=== PATIENT | male | born 1960 | race Caucasian/White ===

== ENCOUNTER 2022-05-03 11:27 | Observation (INO) | payer OTHER, SELFPAY ==
[2022-05-03] VITALS (16 sets, daily range): BP systolic 127–183; BP diastolic 71–87; PULSE 74–102; RESP 18–20; TEMP 36.5–37.9; O2SAT 94–98; BMI 28.9
--- NOTE | 2022-05-03 12:21 | ED.GENADULT ---
HPI - General Adult General Time Seen by Provider: 12:22 Date Seen: 05/03/22 Chief complaint: Skin/Abscess/Foreign Body Stated complaint: LT side of face swollen Time Seen by Provider: 05/03/22 12:00 Source: patient Mode of arrival: ambulatory Limitations: no limitations History of Present Illness HPI narrative: Patient is a 62 white male who is nondiabetic who presents with left-sided facial swelling starting yesterday. He has not had any history of significant infections. He reports that his face yesterday started with a little bit a redness under his left eye now spread across his nasal bridge to the other side under his eye on the right and he has got a entire maxillary sinus area redness as well. He has had sinus type symptoms over the last week or so. He also sprained his left ankle recently has some bruising in that area. He has had dry skin about his face but no obvious injury. He does have 1 area that is scratched on his left side of the nose. But does not appear bleeding or infected. He has noticed the area is very warm as well as red. He does not have any significant rigors he is not dizzy Related Data Home Medications Medication Instructions Recorded Confirmed No Known Home Medications 04/29/22 04/29/22 Allergies Allergy/AdvReac Type Severity Reaction Status Date / Time No Known Drug Allergies Allergy Verified 04/29/22 11:31 Review of Systems Status of ROS: Reports: 6 or more systems reviewed and unremarkable except as noted in History and below [facility] Medical History Hyperlipidemia Rupture of plantaris tendon Surgical History History of hernia repair Social History Smoking Status: Never smoker Do you use any of these nicotine containing products: None Second hand tobacco smoke exposure: No How often do you have a drink containing alcohol: 2-3 times a week How many standard drinks containing alcohol do you have on a typical day: 1 or 2 How often do you have six or more drinks on one occasion: Never AUDIT-C Alcohol total score: 3 Non-prescribed substance use: denies use Exam Narrative: Exam Narrative: Objective in general patient is no apparent distress his temp is 99? other vital signs unremarkable He has got significant redness under his left eye across his nasal bridge to under his right eye the entire left cheek is reddened and puffy, he has got a small scratch area on the left side of the nose. No other obvious rashes or lesions. Does not seem to involve his eyes but is around the eyes socket in the soft tissue in the inferior rim of the eye on the left and a little bit on the right Const: Vital Signs, click to edit/add: Vital Signs - 24 hr 05/03/22 11:59 05/03/22 13:03 05/03/22 13:04 Temperature 99.0 F Pulse Rate 99 99 Pulse Rate [Pulse Oximeter] 102 H Respiratory Rate 20 Blood Pressure 157/86 H Blood Pressure [Ri ght Upper Arm] 143/81 H Pulse Oximetry 95 95 96 Oxygen Delivery Me thod Room Air 05/03/22 13:15 05/03/22 13:30 05/03/22 13:32 Temperature Pulse Rate 92 92 90 Pulse Rate [Pulse Oximeter] Respiratory Rate Blood Pressure 149/84 H Blood Pressure [Ri ght Upper Arm] Pulse Oximetry 96 96 96 Oxygen Delivery Me thod 05/03/22 13:45 05/03/22 14:00 05/03/22 14:02 Temperature Pulse Rate 89 90 94 Pulse Rate [Pulse Oximeter] Respiratory Rate Blood Pressure 146/84 H Blood Pressure [Ri ght Upper Arm] Pulse Oximetry 98 97 97 Oxygen Delivery Me thod 05/03/22 14:15 05/03/22 14:30 Temperature Pulse Rate 88 91 Pulse Rate [Pulse Oximeter] Respiratory Rate Blood Pressure Blood Pressure [Ri ght Upper Arm] Pulse Oximetry 97 97 Oxygen Delivery Me thod Course Vital Signs Vital signs: Initial Vital Signs Temperature 99.0 F 05/03/22 11:59 Temperature Source Temporal Artery Scan 05/03/22 11:59 Pulse Rate 102 H 05/03/22 11:59 Respiratory Rate 20 05/03/22 11:59 Blood Pressure 143/81 H 05/03/22 11:59 Blood Pressure Mean 101 05/03/22 11:59 Blood Pressure Position Sitting 05/03/22 11:59 Pulse Oximetry 95 05/03/22 11:59 Oxygen Delivery Method 05/03/22 11:59 Vital Signs Temperature 99.0 F 05/03/22 11:59 Pulse Rate 102 H 05/03/22 11:59 Respiratory Rate 20 05/03/22 11:59 Blood Pressure 143/81 H 05/03/22 11:59 Pulse Oximetry 95 05/03/22 11:59 Oxygen Delivery Method 05/03/22 11:59 Temperature 99.0 F 05/03/22 11:59 Pulse Rate 91 05/03/22 14:30 Respiratory Rate 20 05/03/22 11:59 Blood Pressure 146/84 H 05/03/22 14:02 Pulse Oximetry 97 05/03/22 14:30 Oxygen Delivery Method 05/03/22 11:59 Medical Decision Making MDM Narrative Medical decision making narrative: Patient is a 62-year-old white male with on unremarkable past medical history, who presents with facial cellulitis that seems to be pretty significantly spreading over the last 24 hours. At this point I think he needs hospitalization IV vancomycin, blood culture, IV fluid, pain control as needed. Will discuss with hospitalist ENT consult as needed but I think at this point simply pain control, antibiotics for MRSA and staph and strep and observation. He has were comfortable plan will discuss with the hospitalist team. Lab Data Labs: Lab Results 05/03/22 05/03/22 05/03/22 Range/Units 12:46 12:46 13:15 WBC 16.52 H (4.50-11.00) K/uL RBC 5.32 (4.30-5.90) m/uL Hgb 15.1 (13.5-17.5) gm/dL Hct 45.3 (37.0-53.0) % MCV 85 (80-100) fL MCH 28 (26-34) pg MCHC 33 (32-36) gm/dL RDW Coeff of Valdemar 14.3 (11.5-15.5) % Plt Count 358 (140-440) K/uL Neut % (Auto) 88.0 H (42.0-72.0) % Lymph % (Auto) 6.5 L (20-44) % [place] % (Auto) 5.2 (0.0-11.0) % Eos % (Auto) 0.1 (0.0-7.0) % Baso % (Auto) 0.1 (0.0-3.0) % Neut # (Auto) 14.50 H (1.7-7.0) K/uL Lymph # (Auto) 1.10 (0.90-2.90) K/uL [place] # (Auto) 0.90 (0.00-0.90) K/UL Eos # (Auto) 0.00 (0.00-0.50) K/uL Baso # (Auto) 0.00 (0.00-0.30) K/uL Sodium 138 (135-149) mmol/L Potassium 3.9 (3.6-5.1) mmol/L Chloride 105 (96-114) mmol/L Carbon Dioxide 25 (20-32) mmol/L BUN 19 (7-30) mg/dL Creatinine 0.9 (0.5-1.5) mg/dL Estimated Creat Clear 73.15 Estimated GFR 96 ml/min Glucose 121 H (60-115) mg/dL Calcium 9.2 (8.4-10.6) mg/dL C-Reactive Protein 4.0 H (0.5-1.0) mg/dL SARS-CoV-2 (PCR) Negative SARS-CoV-2 (Negative) Discharge Plan Discharge Clinical Impression: Cellulitis of face Patient Disposition: Admitted As Inpatient
[2022-05-03] MEDS: 0.9 % SODIUM CHLORIDE 1000 ml 1,000 ML 6000 ML IV (12:49)
[2022-05-03] MEDS: MORPHINE 4 MG/ML INJ IVP (12:51)
[2022-05-03 13:35] LABS: Basophils Percent Auto 0.1 % (0.0-3.0); Eosinophils Percent Auto 0.1 % (0.0-7.0); Hematocrit 45.3 % (37.0-53.0); Hemoglobin* 15.1 gm/dL (13.5-17.5); Immature Granulocytes Pct Auto 0.1 %; Lymphocytes Percent Auto 6.5 % (20-44); Mean Corpuscular HGB Conc 33 gm/dL (32-36); Mean Corpuscular Hemoglobin 28 pg (26-34); Mean Corpuscular Volume 85 fL (80-100); Monocytes Percent Auto 5.2 % (0.0-11.0); Platelet Count* 358 K/uL (140-440); RDW Coefficient of Variation % 14.3 % (11.5-15.5); Red Blood Count 5.32 m/uL (4.30-5.90); White Blood Count* 16.52 K/uL (4.50-11.00)
[2022-05-03 13:36] LABS: Slide Review Reflex No
[2022-05-03 13:47] LABS: Chloride* 105 mmol/L (96-114)
[2022-05-03 13:48] LABS: Potassium* 3.9 mmol/L (3.6-5.1); Sodium* 138 mmol/L (135-149)
[2022-05-03 13:50] LABS: Creatinine* 0.9 mg/dL (0.5-1.5); Est. Creatinine Clearance* 73.15; Estimated Glomerular Filt Rate 96 ml/min
[2022-05-03 13:51] LABS: Blood Urea Nitrogen* 19 mg/dL (7-30); Calcium* 9.2 mg/dL (8.4-10.6); Carbon Dioxide* 25 mmol/L (20-32); Glucose* 121 mg/dL (60-115)
[2022-05-03 14:04] LABS: SARS PCR* Negative SARS-CoV-2 (Negative)
--- NOTE | 2022-05-03 14:30 | ED.NURSE ---
report to marilu plata. will go to [id number] via w/c.
--- NOTE | 2022-05-03 15:54 | PM.IMHP1 ---
Hospitalist- H&P: HPI History of Present Illness Date Seen: 05/03/22 Chief complaint: LT side of face swollen Narrative: Elmer Woodard is a 62 year old male who presented to the emergency room today with an erythematous rash on his face that he 1st noticed this morning. Elmer has had intermittent sinus infection symptoms for the past 7-10 days. He has had intermittent facial pain that is responded well to aspirin. This morning, he woke up and saw that his face was erythematous and presented to the ER. He has had no known fevers. No sick contacts, recent travel, or dental work. No self or family history of autoimmune disorders. ER course and findings: - white count 16, CRP 4 - given vancomycin Admitted to the hospital given acute illness and facial cellulitis. Patient is generally healthy and takes no medications on a regular basis. He does not have a local PCP. Review of Systems Status of ROS: Reports: 10 or more systems reviewed and unremarkable except as noted in History and below Narrative: + sinus congestion. Recent injury to left lower extremity (plantar tendon rupture), bruising noted No CP, no dyspnea. No new GI or symptoms. [facility] Medical History (Updated 05/03/22 @ 16:12 by Renetta Birch MD) Hyperlipidemia Rupture of plantaris tendon Surgical History History of hernia repair Social History (Updated 05/03/22 @ 15:57 by Renetta Birch MD) Narrative: Lives with (medical decision maker, if needed) in [place]. Works for [employer]. Full Code. Smoking Status: Never smoker Do you use any of these nicotine containing products: None Second hand tobacco smoke exposure: No How often do you have a drink containing alcohol: 2-3 times a week How many standard drinks containing alcohol do you have on a typical day: 1 or 2 How often do you have six or more drinks on one occasion: Never AUDIT-C Alcohol total score: 3 Non-prescribed substance use: denies use Meds Home Medications and Allergies Home Medications Medication Instructions Recorded Confirmed Type No Known Home Medications 04/29/22 04/29/22 History Home Medication Comments: No daily medications. Allergies Allergy/AdvReac Type Severity Reaction Status Date / Time No Known Drug Allergies Allergy Verified 04/29/22 11:31 Exam Narrative: Exam Narrative: GEN: Alert and oriented, speaking in full sentences HEENT: Normal external ears, EOMIs bilaterally, no scleral icterus, oropharynx moist and clear, posteriorly patent CV: RRR, No concerning murmurs, rubs, or gallops R: LCTA bilaterally without concerning wheezing, air movement adequate Ext: wwp, no concerning edema. + bruising over LLE medial malleolus from recent injury Skin: erythematous rash over nose and bilateral cheeks, malar distribution Neuro: No focal deficits Psych: Appropriate Const: Vital Signs, click to edit/add: Vital Signs - 24 hr 05/03/22 11:59 05/03/22 13:03 05/03/22 13:04 Temperature 99.0 F Pulse Rate 99 99 Pulse Rate [Pulse Oximeter] 102 H Pulse Rate [Right Radial] Respiratory Rate 20 Blood Pressure 157/86 H Blood Pressure [Ri ght Arm] Blood Pressure [Ri ght Upper Arm] 143/81 H Pulse Oximetry 95 95 96 Oxygen Delivery Me thod Room Air 05/03/22 13:15 05/03/22 13:30 05/03/22 13:32 Temperature Pulse Rate 92 92 90 Pulse Rate [Pulse Oximeter] Pulse Rate [Right Radial] Respiratory Rate Blood Pressure 149/84 H Blood Pressure [Ri ght Arm] Blood Pressure [Ri ght Upper Arm] Pulse Oximetry 96 96 96 Oxygen Delivery Me thod 05/03/22 13:45 05/03/22 14:00 05/03/22 14:02 Temperature Pulse Rate 89 90 94 Pulse Rate [Pulse Oximeter] Pulse Rate [Right Radial] Respiratory Rate Blood Pressure 146/84 H Blood Pressure [Ri ght Arm] Blood Pressure [Ri ght Upper Arm] Pulse Oximetry 98 97 97 Oxygen Delivery Me thod 05/03/22 14:15 05/03/22 14:30 05/03/22 15:03 Temperature 100.3 F H Pulse Rate 88 91 Pulse Rate [Pulse Oximeter] Pulse Rate [Right Radial] 95 Respiratory Rate 18 Blood Pressure Blood Pressure [Ri ght Arm] 183/87 H Blood Pressure [Ri ght Upper Arm] Pulse Oximetry 97 97 98 Oxygen Delivery Me thod Room Air Hospitalist - H&P: Result Labs Labs: Short CBC 05/03/22 Range/Units 12:46 WBC 16.52 H (4.50-11.00) K/uL Hgb 15.1 (13.5-17.5) gm/dL Hct 45.3 (37.0-53.0) % Plt Count 358 (140-440) K/uL [facility] 05/03/22 12:46 Sodium 138 Potassium 3.9 Chloride 105 Carbon Dioxide 25 BUN 19 Creatinine 0.9 Glucose 121 H Calcium 9.2 Assessment and Plan Assessment and plan (1) Cellulitis of face: Problem comment: - vancomycin initiated in the emergency room - distribution of rash raises possibility of SLE; given patient's acute sinusitis, leukocytosis, and elevated temp, acute infectious process more likely - consider outpatient workup for autoimmune conditions after hospital stay - add Unasyn to vancomycin, follow closely with low threshold for imaging, follow WBC and inflammatory markers Status: Acute Plan - per above - SCDs and ambulation for ppx - Full Code - updated at bedside, questions answered
--- NOTE | 2022-05-03 16:15 | CRLHL7_ITS ---
For Patients: As a result of the Century Cures Act, medical imaging exams and procedure reports are released immediately into your electronic medical record. You may view this report before your referring provider. If you have questions, please contact your health care provider. INDICATION: Facial cellulitis. Evaluate for abscess. COMPARISON: None available. TECHNIQUE: CT examination of the facial bones is performed during the uneventful intravenous administration of 94 cc of Isovue 370 using spiral technique. One mm thick axial, coronal and sagittal sections were obtained from the data. Please note that all CT scans at this facility use dose modulation, iterative reconstruction, and/or weight-based dosing when appropriate to reduce radiation dose to as low as reasonably achievable. FINDINGS: There is mild soft tissue swelling of the left maxillary region, along with mild swelling of the left lower eyelid, consistent with cellulitis. There is no sign of any fluid collection to suggest an abscess. There is no sign osseous destruction. There is no sign of any dental abnormality in this region to suggest a dental origin, with no sign of periapical abscess formation. There is mild right greater than left superior jugular chain lymphadenopathy, the lymph node on the right having a short axis diameter of 1.2 centimeters, the lymph node on the left having a short axis diameter of 1.0 centimeters. These are probably reactive. There is mild prominence of lymph nodes in the submandibular regions bilaterally without lymphadenopathy. Note is made of multiple small enhancing nodules with reniform shape in the superficial lobes of both parotid glands, more numerous on the left than the right. These are probably intra parotid lymph nodes. 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 There is no sign of facial fracture on today`s study. The orbits, zygomatic arches, nasal bones, maxillae, and mandible are normal in appearance. There is a small mucous retention cyst in the inferior left maxillary sinus. The paranasal sinuses are otherwise clear. Paranasal sinuses are clear. The mastoids are clear. The intraorbital soft tissue structures are unremarkable, with no sign of any extension of the left maxillary slightly this into the or intraorbital space. The airway structures are normal in appearance. IMPRESSION: Cellulitis of the left maxillary region extending into the left lower eyelid with no sign of abscess. No sign of intraorbital extension of the inflammatory process. No sign of any dental abscess to suggest a source for the infection. Please note that all CT scans at this facility use dose modulation, iterative reconstruction, and/or weight-based dosing when appropriate to reduce radiation dose to as low as reasonably achievable. Dictated by Peter Pacheco MD @ 05/03/2022 5:46:26 PM (Electronically Signed)
[2022-05-03] MEDS: AMPICILLIN/SULBACTAM 3 GM in 0.9 % SODIUM CHLORIDE Mini-bag 100 ML IVPB ×2 (16:24→21:43)
[2022-05-03] MEDS: IBUPROFEN 600 MG TABLET PO (16:30)
--- NOTE | 2022-05-03 19:17 | PC.NURSE ---
Patient presents to the unit with redness and swelling to primarily left side of face but extending to right side of face as well. Patient independent with cares. Patient with low grade temp of 100.1 upon arrival to unit. After ABX and ibuprofen admin, patient recheck of temp was 99.0. Patient with no c/o pain just pressure to face from the swelling. Patient name is Dayan and was at bedside during initial assessment.
[2022-05-03] MEDS: SODIUM CHLORIDE 0.9 % (FLUSH) 10 ML SYRINGE 5 ML IVF (21:46)
--- NOTE | 2022-05-03 22:43 | PC.NURSE ---
Shift [id number]- Patient denies pain tonight. Face remains pink and swollen. Antibiotic infused without difficulty. Up ad leroy.
[2022-05-04 03:00] VITALS: BP 113/73; PULSE 62; RESP 18; TEMP 36.2; O2SAT 96
[2022-05-04] MEDS: AMPICILLIN/SULBACTAM 3 GM in 0.9 % SODIUM CHLORIDE Mini-bag 100 ML IVPB ×2 (03:39→09:39)
[2022-05-04 06:38] LABS: Basophils Absolute Auto 0.01 K/uL (0.00-0.30); Basophils Percent Auto 0.1 % (0.0-3.0); Eosinophils Absolute Auto 0.15 K/uL (0.00-0.50); Eosinophils Percent Auto 1.6 % (0.0-7.0); Hematocrit 38.2 % (37.0-53.0); Hemoglobin* 12.8 gm/dL (13.5-17.5); Immature Granulocytes Abs Auto 0.09 K/uL (0.00-0.30); Mean Corpuscular HGB Conc 34 gm/dL (32-36); Mean Corpuscular Hemoglobin 29 pg (26-34); Mean Corpuscular Volume 85 fL (80-100); Monocytes Percent Auto 10.9 % (0.0-11.0); Neutrophils Percent Auto 74.4 % (42.0-72.0); Platelet Count* 297 K/uL (140-440); RDW Coefficient of Variation % 14.5 % (11.5-15.5); Red Blood Count 4.49 m/uL (4.30-5.90); White Blood Count* 9.38 K/uL (4.50-11.00)
[2022-05-04 06:57] LABS: Slide Review Reflex No
[2022-05-04 07:08] LABS: Chloride* 106 mmol/L (96-114); Potassium* 3.9 mmol/L (3.6-5.1); Sodium* 137 mmol/L (135-149)
--- NOTE | 2022-05-04 07:08 | PC.NURSE ---
Shift note: Pt is doing well, no fever and pain observed. Ambulated independently in the room. Had adequate sleep tonight.
[2022-05-04 07:11] LABS: Creatinine* 0.8 mg/dL (0.5-1.5); Est. Creatinine Clearance* 73.15; Estimated Glomerular Filt Rate 99 ml/min
[2022-05-04 07:12] LABS: Blood Urea Nitrogen* 14 mg/dL (7-30); Calcium* 8.7 mg/dL (8.4-10.6); Carbon Dioxide* 26 mmol/L (20-32); Glucose* 97 mg/dL (60-115)
[2022-05-04 07:15] LABS: C Reactive Protein* 6.8 mg/dL (0.5-1.0)
[2022-05-04 07:32] VITALS: BP 143/85; PULSE 78; RESP 16; TEMP 36.6; O2SAT 95
[2022-05-04] MEDS: SODIUM CHLORIDE 0.9 % (FLUSH) 10 ML SYRINGE 5 ML IVF (09:39)
--- NOTE | 2022-05-04 09:52 | P.DS_ITS ---
DS: Providers Provider Date Seen: 05/04/22 Date of admission: 05/03/22 14:46 Primary care physician: Carl Echevarria MD Admitting Clinician: Renetta Birch MD Attending Physician on discharge: Renetta Birch MD Date of Discharge: 05/04/22 DS: Diagnosis Discharge Diagnosis (1) Cellulitis of face: Status: Acute Problem details: - vancomycin initiated in the emergency room, Unasyn added during hospital stay - distribution of rash raises possibility of SLE; given patient's acute sinusitis, leukocytosis, and elevated temp, acute infectious process more likely DS: Summary Hospital Course Hospital Course: 62-year-old male with no significant past medical history, admitted to the hospital for facial cellulitis in the setting of recent sinus infection. Initiated vancomycin in the emergency room, Unasyn added during hospitalization. Imaging exhibited no evidence of abscess or dental involvement; patient significantly improved on hospital day 1 and requested discharge home. He will complete IV Vancomycin and Unasyn this morning, transition to oral Augmentin on discharge with close outpatient f/u and strict return precautions. Patient verbalized understanding of plan. Status at Discharge Functional status at discharge: independent ambulation Overall status at discharge: patient is progressing back to baseline Time Spent with Patient Time attestation: Total time spent providing and/or coordinating discharge services: Time spent: Less than 30 minutes Exam Narrative: Exam Narrative: GEN: Alert and oriented, sitting comfortably in bed and answering questions appropriately, nontoxic in appearance HEENT: EOMIs bilaterally and eyes open 100%, + turbinate hypertrophy bilaterally, no trismus, no concerning oral lesions CV: RRR, No concerning murmurs, rubs, or gallops R: LCTA bilaterally without concerning wheezing, rales, or rhonchi Skin: Confluent erythema over nasal bridge and L cheek exhibits significant improvement from admission, no significant induration, no fluctuance or crepitus Neuro: No focal deficits Psych: Appropriate Const: Vital Signs, click to edit/add: Vital Signs - 24 hr 05/03/22 11:59 05/03/22 13:03 05/03/22 13:04 Temperature 99.0 F Pulse Rate 99 99 Pulse Rate [Pulse Oximeter] 102 H Pulse Rate [Right Radial] Respiratory Rate 20 Blood Pressure 157/86 H Blood Pressure [Ri ght Arm] Blood Pressure [Ri ght Upper Arm] 143/81 H Pulse Oximetry 95 95 96 Oxygen Delivery Me thod Room Air 05/03/22 13:15 05/03/22 13:30 05/03/22 13:32 Temperature Pulse Rate 92 92 90 Pulse Rate [Pulse Oximeter] Pulse Rate [Right Radial] Respiratory Rate Blood Pressure 149/84 H Blood Pressure [Ri ght Arm] Blood Pressure [Ri ght Upper Arm] Pulse Oximetry 96 96 96 Oxygen Delivery Me thod 05/03/22 13:45 05/03/22 14:00 05/03/22 14:02 Temperature Pulse Rate 89 90 94 Pulse Rate [Pulse Oximeter] Pulse Rate [Right Radial] Respiratory Rate Blood Pressure 146/84 H Blood Pressure [Ri ght Arm] Blood Pressure [Ri ght Upper Arm] Pulse Oximetry 98 97 97 Oxygen Delivery Me thod 05/03/22 14:15 05/03/22 14:30 05/03/22 15:03 Temperature 100.3 F H Pulse Rate 88 91 Pulse Rate [Pulse Oximeter] Pulse Rate [Right Radial] 95 Respiratory Rate 18 Blood Pressure Blood Pressure [Ri ght Arm] 183/87 H Blood Pressure [Ri ght Upper Arm] Pulse Oximetry 97 97 98 Oxygen Delivery Me thod Room Air 05/03/22 15:03 05/03/22 15:45 05/03/22 15:45 Temperature 100.0 F H Pulse Rate Pulse Rate [Pulse Oximeter] Pulse Rate [Right Radial] 74 Respiratory Rate 18 Blood Pressure Blood Pressure [Ri ght Arm] 174/78 H Blood Pressure [Ri ght Upper Arm] Pulse Oximetry 98 Oxygen Delivery Me thod Room Air Room Air Room Air 05/03/22 19:01 05/03/22 19:00 05/03/22 23:00 Temperature 99.1 F 98.3 F Pulse Rate Pulse Rate [Pulse Oximeter] Pulse Rate [Right Radial] 99 81 99 Respiratory Rate 18 18 18 Blood Pressure Blood Pressure [Ri ght Arm] 130/71 127/73 Blood Pressure [Ri ght Upper Arm] Pulse Oximetry 94 96 Oxygen Delivery Me thod Room Air 05/03/22 23:00 05/03/22 23:00 05/04/22 03:00 Temperature 97.7 F 97.2 F L Pulse Rate Pulse Rate [Pulse Oximeter] Pulse Rate [Right Radial] 76 62 Respiratory Rate 18 18 18 Blood Pressure Blood Pressure [Ri ght Arm] 137/82 113/73 Blood Pressure [Ri ght Upper Arm] Pulse Oximetry 96 96 96 Oxygen Delivery Me thod Room Air Room Air Room Air 05/04/22 07:32 Temperature 97.8 F Pulse Rate Pulse Rate [Pulse Oximeter] Pulse Rate [Right Radial] 78 Respiratory Rate 16 Blood Pressure Blood Pressure [Ri ght Arm] 143/85 H Blood Pressure [Ri ght Upper Arm] Pulse Oximetry 95 Oxygen Delivery Me thod Room Air DS: Data Data Completed and Pending Completed studies during hospitalization: CT FACIAL BONES INDICATION: Facial cellulitis. Evaluate for abscess. COMPARISON: None available. TECHNIQUE: CT examination of the facial bones is performed during the uneventful intravenous administration of 94 cc of Isovue 370 using spiral technique. One mm thick axial, coronal and sagittal sections were obtained from the data. Please note that all CT scans at this facility use dose modulation, iterative reconstruction, and/or weight-based dosing when appropriate to reduce radiation dose to as low as reasonably achievable. FINDINGS: There is mild soft tissue swelling of the left maxillary region, along with mild swelling of the left lower eyelid, consistent with cellulitis. There is no sign of any fluid collection to suggest an abscess. There is no sign osseous destruction. There is no sign of any dental abnormality in this region to suggest a dental origin, with no sign of periapical abscess formation. There is mild right greater than left superior jugular chain lymphadenopathy, the lymph node on the right having a short axis diameter of 1.2 centimeters, the lymph node on the left having a short axis diameter of 1.0 centimeters. These are probably reactive. There is mild prominence of lymph nodes in the submandibular regions bilaterally without lymphadenopathy. Note is made of multiple small enhancing nodules with reniform shape in the superficial lobes of both parotid glands, more numerous on the left than the right. These are probably intra parotid lymph nodes. 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 There is no sign of facial fracture on today`s study. The orbits, zygomatic arches, nasal bones, maxillae, and mandible are normal in appearance. There is a small mucous retention cyst in the inferior left maxillary sinus. The paranasal sinuses are otherwise clear. Paranasal sinuses are clear. The mastoids are clear. The intraorbital soft tissue structures are unremarkable, with no sign of any extension of the left maxillary slightly this into the or intraorbital space. The airway structures are normal in appearance. ? IMPRESSION: Cellulitis of the left maxillary region extending into the left lower eyelid with no sign of abscess. No sign of intraorbital extension of the inflammatory process. No sign of any dental abscess to suggest a source for the infection. Please note that all CT scans at this facility use dose modulation, iterative reconstruction, and/or weight-based dosing when appropriate to reduce radiation dose to as low as reasonably achievable. Dictated by Peter Pacheco MD @ 05/03/2022 5:46:26 PM Labs on day of discharge: Labs from last 24 hours 05/04/22 05/04/22 05/03/22 05:53 05:53 13:15 WBC 9.38 RBC 4.49 Hgb 12.8 L Hct 38.2 MCV 85 MCH 29 MCHC 34 RDW Coeff of Valdemar 14.5 Plt Count 297 Neut % (Auto) 74.4 H Lymph % (Auto) 12.0 L Andrews % (Auto) 10.9 Eos % (Auto) 1.6 Baso % (Auto) 0.1 Neut # (Auto) 7.00 Lymph # (Auto) 1.10 Andrews # (Auto) 1.00 H Eos # (Auto) 0.15 Baso # (Auto) 0.01 Sodium 137 Potassium 3.9 Chloride 106 Carbon Dioxide 26 BUN 14 Creatinine 0.8 Estimated Creat Clear 73.15 Estimated GFR 99 Glucose 97 Calcium 8.7 C-Reactive Protein 6.8 H SARS-CoV-2 (PCR) Negative SARS-CoV-2 05/03/22 05/03/22 12:46 12:46 WBC 16.52 H RBC 5.32 Hgb 15.1 Hct 45.3 MCV 85 MCH 28 MCHC 33 RDW Coeff of Valdemar 14.3 Plt Count 358 Neut % (Auto) 88.0 H Lymph % (Auto) 6.5 L Andrews % (Auto) 5.2 Eos % (Auto) 0.1 Baso % (Auto) 0.1 Neut # (Auto) 14.50 H Lymph # (Auto) 1.10 Andrews # (Auto) 0.90 Eos # (Auto) 0.00 Baso # (Auto) 0.00 Sodium 138 Potassium 3.9 Chloride 105 Carbon Dioxide 25 BUN 19 Creatinine 0.9 Estimated Creat Clear 73.15 Estimated GFR 96 Glucose 121 H Calcium 9.2 C-Reactive Protein 4.0 H SARS-CoV-2 (PCR) Discharge Plan Discharge Disposition: Home, Self-Care Date of Admission: 05/03/22 14:46 Attending Provider on Discharge: Renetta Birch Primary Care Provider: Calr Echevarria Condition: Improved Anticipated Discharge Date/Time: 05/04/22 11:00 Discharge Medications: New amoxicillin-pot clavulanate 875-125 mg tablet 1 tab PO Q12H 8 Days Qty: 16 0RF fluticasone propionate 50 mcg/actuation [place],Suspension 1 spray intranasal BID Qty: 16 1RF No Action No Known Home Medications Discharge Orders: Discharge Order (Routine); Ordered 05/04/22 Ordered By: Renetta Birch Patient Education: Cellulitis (GEN) Additional Instructions: Antibiotics at [facility] in [place], take twice/day with food. See Dr. Echevarria in [place] for followup - must return to ED with any worsening symptoms. Activity Level: Activity as Tolerated Discharge Diet: Regular Follow Up Appointments: Carl Echevarria MD [Primary Care Provider] - (see Dr. Echevarria at [place] [facility] later this week for a hospital f/u (facial cellulitis)) Forms: [facility] Info Instructions
[2022-05-04 09:57] VITALS: O2SAT 100
[2022-05-04] MEDS: FLUTICASONE PROPIONATE NASAL 1 SPRAY NOSTRIL-B (10:06)
[2022-05-04 11:39] VITALS: BP 147/75; PULSE 88; RESP 16; TEMP 36.6; O2SAT 98
[2022-05-04 12:24] VITALS: BP 146/84; PULSE 91; RESP 16; TEMP 36.6
--- NOTE | 2022-05-04 13:29 | PC.NURSE ---
Patient discharged home self care with . Has follow up with PCP on 05/12. Received amp and vanco this shift. Will transition to PO meds tonight. PIV taken out and catheter intact. Lung sounds clear. Tolerating a regular diet. Voiding without difficulty. All questions answered. Left via ambulatory with .
== END 2022-05-04 13:32 | disposition home or self-care (01) ==
LOC: ED 13:40 → MEDSURG 14:48
PROVIDERS: Admitting Provider Family Medicine; Emergency Provider Family Medicine; PCP Family Medicine; Visit Provider Family Medicine
DX: L03.211 Cellulitis of face (principal); J01.90 Acute sinusitis, unspecified; D72.829 Elevated white blood cell count, unspecified; M79.9 Soft tissue disorder, unspecified; H02.845 Edema of left lower eyelid; S90.02XA Contusion of left ankle, initial encounter; Z98.890 Other specified postprocedural states; Z87.898 Personal history of other specified conditions; R21 Rash and other nonspecific skin eruption; L53.9 Erythematous condition, unspecified
CPT/HCPCS: 36415; 70487; 80048; 85025; 86140; 87040; 87635; 96361; 96365; 96366; 96367; 96375; 99284; A9270; G0378; J0295; J2270; J3370; J7030; J7050; J7120; Q9967